=== PATIENT | female | born 1970 | race American Indian/Alaskan Native ===

== ENCOUNTER 2016-10-07 09:35 | Observation (INO) | payer MEDICARE ==
[~2016-10-07] VITALS: Ht 160 cm; Wt 75.5 kg
[2016-10-07] VITALS (12 sets, daily range): BP systolic 103–153; BP diastolic 51–77; PULSE 69–122; TEMP 97.8–98.2
[~2016-10-07 09:35] MED LIST: ALPRAZOLAM; GUAIFEN-PSE 6001 TER PO; PERCOCET 5/321 UDTAB PO
[2016-10-07] MEDS ORDERED: MSIR30 MG PO (09:40)
[2016-10-07] MEDS ORDERED: CELEXA 20MG20 MG/TAB PO (09:40)
[2016-10-07 10:31] LABS: BASO # 0.1 (0.0-0.2); BASO % 0.4 % (0.0-2.0); EOS % 0.1 % (0-4.0); GRAN # 11.6 (1.4-6.5); GRAN % 83.5 % (42.2-75.2); HEMOGLOBIN 14.2 g/dl (12.5-16.0); LYMPH # 1.5 (1.2-3.4); LYMPH % 10.9 % (20.0-51.0); MEAN CELL VOLUME 89 fl (80.0-100.0); MEAN CORPUSCULAR HEMOGLOBIN 30 pg (27.0-31.0); MEAN CORPUSCULAR HGB CONC 34 g/dl (33.0-37.0); MEAN PLATELET VOLUME 8.7 fl (7.4-10.4); MONO # 0.7 (0.1-0.6); MONO % 4.8 % (1.7-9.3); PLATELET COUNT 285 K/mm3 (130-400); RED BLOOD COUNT 4.71 M/mm3 (4.10-5.30); REDCELL DISTRIBUTION WIDTH-CV 11.9 % (11.5-14.5); WHITE BLOOD COUNT 13.9 K/mm3 (4.8-10.8)
[2016-10-07 10:39] LABS: PH 6 (5-8); URINE APPEARANCE Cloudy; URINE BACTERIA Rare /hpf; URINE BILIRUBIN Negative (NEGATIVE); URINE BLOOD 3+ (NEGATIVE); URINE COLOR Yellow; URINE GLUCOSE Negative (NEGATIVE); URINE KETONE Negative (NEGATIVE); URINE RBC >50 /hpf; URINE UROBILINOGEN Negative (NEGATIVE); URINE WBC >50 /hpf
[2016-10-07 10:42] LABS: ADJUSTED CALCIUM 8.8 mg/dL (8.4-10.2); ALBUMIN 4.5 gm/dL (3.5-5.0); CALCIUM 9.2 mg/dL (8.4-10.2); CREATININE, serum 0.55 mg/dL (0.52-1.25); POTASSIUM 3.7 mmol/L (3.4-5.0); TOTAL PROTEIN 8.3 gm/dL (6.4-8.2)
[2016-10-08 02:10] VITALS: BP 139/86; PULSE 95; TEMP 97.2
[2016-10-08 04:24] VITALS: BP 114/46; PULSE 72; TEMP 97.6
[2016-10-08 09:30] VITALS: BP 101/58; PULSE 65; TEMP 98.1
[2016-10-18] MEDS ORDERED: MOTRIN 200200 MG/TAB PO (11:43)
== END 2016-10-08 14:20 | disposition home or self-care (01) ==
LOC: COL.ER 09:35 → SURG 11:20
PROVIDERS: Emergency Medicine
DX: N20.1 Calculus of ureter (principal); N39.0 Urinary tract infection, site not specified; B96.20 Unspecified Escherichia coli [E. coli] as the cause of diseases classified elsewhere
CPT/HCPCS: C1769; C2617; G0378; J0690; J1100; J1170; J1885; J1956; J2270; J2405; J2704; J2765; J3010; J7030; Q9967

== ENCOUNTER → 2016-10-18 | Day surgery (SDC) | payer MEDICARE ==
[~2016-10-18] VITALS: Ht 158.8 cm; Wt 75.1 kg
[~2016-10-18] MED LIST changes: +CELEXA 20MG20 MG/TAB PO; +MOTRIN 200200 MG/TAB PO; +MSIR30 MG PO
[2016-10-18 11:48] VITALS: BP 118/85; PULSE 77; TEMP 98.2
[2016-10-18 13:35] VITALS: BP 117/66; PULSE 65; TEMP 98.2
[2016-10-18 13:50] VITALS: BP 123/71; PULSE 68
[2016-10-18 14:05] VITALS: BP 128/74; PULSE 65
[2016-10-18 14:20] VITALS: BP 128/67; PULSE 66
== END ==
LOC: SDCO 11:00
DX: N20.1 Calculus of ureter (principal)
CPT/HCPCS: C1769; J0690; J1885; J2405; J2704; J3010; J7120

== ENCOUNTER 2019-05-15 01:13 | Emergency (ER) | payer MEDICARE ==
[~2019-05-15] VITALS: Ht 157.5 cm; Wt 63.6 kg
[2019-05-15 01:48] LABS: COLLECTION METHOD CLEAN CATCH
[2019-05-15 01:55] LABS: HYALINE CAST >12 /lpf; MUCOUS Present /lpf; PH 5 (5-8); URINE APPEARANCE Cloudy; URINE BACTERIA Many /hpf; URINE BILIRUBIN Negative (NEGATIVE); URINE BLOOD Negative (NEGATIVE); URINE COLOR Amber; URINE GLUCOSE Negative (NEGATIVE); URINE KETONE Trace (NEGATIVE); URINE LEUKOCYTE ESTERASE Trace (NEGATIVE); URINE NITRATE Positive (NEGATIVE); URINE PROTEIN(semi-quant) 1+ (NEGATIVE); URINE UROBILINOGEN Negative (NEGATIVE)
[2019-05-15 02:03] LABS: TRICYCLIC ANTIDEPRESS URINE NEGATIVE
[2019-05-15 02:06] LABS: BASO # 0.1 (0.0-0.2); BASO % 0.4 % (0.0-2.0); EOS # 0.1 (0.0-0.7); EOS % 1.1 % (0-4.0); GRAN # 8.4 (1.4-6.5); GRAN % 74.1 % (42.2-75.2); HEMATOCRIT 39.9 % (37.0-47.0); LYMPH # 2.1 (1.2-3.4); LYMPH % 18.7 % (20.0-51.0); MEAN CELL VOLUME 93 fl (80.0-100.0); MEAN CORPUSCULAR HEMOGLOBIN 30 pg (27.0-31.0); MEAN CORPUSCULAR HGB CONC 33 g/dl (33.0-37.0); MEAN PLATELET VOLUME 8.7 fl (7.4-10.4); MONO # 0.6 (0.1-0.6); MONO % 5.4 % (1.7-9.3); PLATELET COUNT 330 K/mm3 (130-400); REDCELL DISTRIBUTION WIDTH-CV 12.5 % (11.5-14.5)
[2019-05-15] MEDS ORDERED: OMNICEF 300MG300 MG PO (02:08)
[2019-05-15 02:16] LABS: ACETAMINOPHEN < 10 ug/mL (10-30); ALANINE AMINOTRANSFERASE 7 U/L (9-52); ALBUMIN 4.4 gm/dL (3.5-5.0); ALCOHOL(ethanol),MEDICAL < 10 mg/dL; ALKALINE PHOSPHATASE 84 U/L (50-136); ANION GAP 11 mmol/L (7-16); AST,SGOT 23 U/L (15-37); BILIRUBIN,TOTAL 0.4 mg/dL (0.0-1.0); BLOOD UREA NITROGEN 12 mg/dL (7-17); CALCIUM 8.9 mg/dL (8.4-10.2); CARBON DIOXIDE 31 mmol/L (22-30); CHLORIDE 101 mmol/L (98-107); CREATININE, serum 0.65 (0.52-1.25); GLUCOSE 127 mg/dL (74-106); POTASSIUM 3.7 mmol/L (3.4-5.0); SALICYLATE < 1.0 mg/dL; SODIUM 142 mmol/L (137-145); TOTAL PROTEIN 8.2 gm/dL (6.4-8.2)
[2019-05-15 13:30] VITALS: BP 118/69; PULSE 87; TEMP 98
== END 2019-05-15 13:30 | disposition home or self-care (01) ==
LOC: COL.ER 01:13
PROVIDERS: Emergency Medicine
DX: N39.0 Urinary tract infection, site not specified (principal); R45.851 Suicidal ideations; Z90.49 Acquired absence of other specified parts of digestive tract; Z87.442 Personal history of urinary calculi

== ENCOUNTER 2019-06-11 13:00 | Outpatient (RCR) | payer MEDICARE ==
[~2019-06-11 13:00] MED LIST changes: +OMNICEF 300MG300 MG PO
== END 2019-08-08 | disposition home or self-care (01) ==
LOC: WSOT
DX: M65.88 Other synovitis and tenosynovitis, other site (principal)

== ENCOUNTER → 2019-11-19 | Outpatient (CLI) | payer MEDICARE | LOC: MC.RAD 11:10 | DX: Z12.31 Encounter for screening mammogram for malignant neoplasm of breast (principal) ==